=== PATIENT | female | born 1975 | race Caucasian/White ===

== ENCOUNTER 2017-10-02 05:16 | Emergency (ER) | payer OTHER ==
[~2017-10-02] VITALS: Ht 152.4 cm; Wt 80.5 kg
[2017-10-02 05:19] VITALS: Ht 152.4 cm; Wt 80.5 kg
[2017-10-02 09:10] LABS: UA SPECIFIC GRAVITY 1.025 (1.005-1.035); microscopic required? YES; urine erythrocyte 3+ (NEGATIVE)
[2017-10-02 09:19] LABS: PLATELET COUNT 202 x10^3mcL (130-400)
[2017-10-02 09:26] LABS: BASOPHIL % 0 % (0-2); RED CELL DISTRIBUTION WIDTH 17.6 % (11.5-14.5)
[2017-10-02 11:33] VITALS: BP 104/65
== END 2017-10-02 11:33 | disposition home or self-care (01) ==
LOC: ED 05:16
PROVIDERS: Emergency Medicine
DX: O23.41 Unspecified infection of urinary tract in pregnancy, first trimester (principal); O03.9 Complete or unspecified spontaneous abortion without complication; R10.30 Lower abdominal pain, unspecified; R11.0 Nausea
CPT/HCPCS: J0696; J2765; J3490; Q0092